=== PATIENT | female | born 1955 | race Caucasian/White ===

== ENCOUNTER 2020-09-16 10:06 | Emergency (ER) | payer MEDICARE, OTHER ==
[~2020-09-16] VITALS: Ht 170.2 cm; Wt 88.3 kg
[2020-09-16] MEDS ORDERED: IV NORMAL SALINE 1,000ML 1,000 ML IV ONE (10:45)
--- NOTE | 2020-09-16 10:54 | PHYS DOC ---
General Adult EDM: Chief Complaint: BLOODY STOOL HPI: HPI: 64-year-old female presents with blood in her stool. The patient has had bright red blood with her stool for the last 5 days. She only has blood with the stool. She was concerned now because she not only had blood mixed in the stool yesterday, but just drops of blood in the stool as well. It is painless. She has never had this before. She had a colonoscopy 3 years ago that is reported to be negative. She does not have difficulty with constipation. She has felt some bloating and some left lower quadrant pain. It is mild. Denies fever or chills. Review of Systems: Review of Systems: Constitutional: Denies fever or chills Eyes: Denies change in visual acuity HENT: Denies nasal congestion or sore throat Respiratory: Denies cough or shortness of breath Cardiovascular: Denies chest pain or edema GI: Left lower quadrant abdominal pain, blood in the stool. : Denies dysuria Musculoskeletal: Denies back pain or joint pain Integument: Denies rash Neurologic: Denies headache, focal weakness or sensory changes Endocrine: Denies polyuria or polydipsia Lymphatic: Denies swollen glands Psychiatric: Denies depression or anxiety Current Medications: Current Meds: Current Medications Medications (Trade) Dose Ordered Sig/Nena Start Time Stop Time Status Last Admin Dose Admin Sodium Chloride 1,000 ml @ 1,000 mls/hr 1X ONCE 09/16/20 10:45 09/16/20 11:44 UNV Physical Exam: PE: Constitutional: Well developed, well nourished, no acute distress, non-toxic appearance. [] HENT: Normocephalic, atraumatic, bilateral external ears normal, oropharynx moist, no oral exudates, nose normal. [] Eyes: PERRLA, EOMI, conjunctiva normal, no discharge. [] Neck: Normal range of motion, no tenderness, supple, no stridor. [] Cardiovascular: Heart rate regular rhythm, no murmur [] Lungs & Thorax: Bilateral breath sounds clear to auscultation [] Abdomen: Bowel sounds normal, soft, no tenderness, no masses, no pulsatile masses. [] Skin: Warm, dry, no erythema, no rash. [] Back: No tenderness, no CVA tenderness. [] Extremities: No tenderness, no cyanosis, no clubbing, ROM intact, no edema. [] Neurologic: Alert and oriented X 3, normal motor function, normal sensory function, no focal deficits noted. [] Psychologic: Affect normal, judgement normal, mood normal. [] EKG: EKG: [] Radiology/Procedures: Radiology/Procedures: [] Impressions: CT ABDOMEN+PELVIS W History: LLQ pain Comparison: None. Technique: After administration of intravenous contrast, helical CT of the abdomen and pelvis was performed from the lung bases through the ischial tuberosities. Coronal and sagittal reconstructions were obtained. 75 mL of Omnipaque 350 were used. One or more of the following dose reduction techniques were utilized: Automated exposure control (AEC), Adjustment of mA and/or kV according to patient size, Use of iterative reconstruction technique such as ASiR, CT scan done according to ALARA and image gently/image wisely Abdomen Findings: The visualized lung bases are clear. Hepatic steatosis. The gallbladder, pancreas, spleen, and bilateral adrenal glands are normal. Symmetric renal enhancement. Indeterminate left renal 1.4 cm lesion. There is no hydronephrosis. The visualized loops of small bowel are normal. Colonic diverticulosis. There is no evidence of bowel obstruction. Appendix is not seen There is no free fluid. There is no mesenteric or retroperitoneal adenopathy. The abdominal aorta is normal in caliber. Pelvis Findings: Urinary bladder is normal. No pelvic free fluid. There is no pelvic or inguinal adenopathy. There is no acute bony abnormality. IMPRESSION: 1. No acute findings. 2. Colonic diverticulosis. 3. Indeterminate left renal 1.4 cm lesion. This could be further characterized with nonemergent renal ultrasound. Electronically signed by: Renée Aranda MD (09/16/2020 12:32 PM) [id number] DICTATED AND SIGNED BY: RENÉE ARANDA MD DATE: 09/16/20 [id number] CC: ALCIRA CHAPPELL DO; PCP,NO ~MTH0 0 Heart Score: C/O Chest Pain: N/A Risk Factors: Risk Factors: DM, Current or recent (<one month) smoker, HTN, HLP, family history of CAD, obesity. Risk Scores: Score 0 - 3: 2.5% MACE over next 6 weeks - Discharge Home Score 4 - 6: 20.3% MACE over next 6 weeks - Admit for Clinical Observation Score 7 - 10: 72.7% MACE over next 6 weeks - Early Invasive Strategies Course & Med Decision Making: Course & Med Decision Making Pertinent Labs and Imaging studies reviewed. (See chart for details) The patient's labs are unremarkable. Her hemoglobin is normal. She has not had a stool in the emergency room. I believe this is likely a superficial internal hemorrhoid. If the patient has significant bleeding at home she'll return to the emergency room. The patient's urinalysis is suggestive of UTI. The patient is having some symptoms so I will treat her with Macrobid for 5 days. She is stable for discharge at this time. [] Dragon Disclaimer: Dragon Disclaimer: This electronic medical record was generated, in whole or in part, using a voice recognition dictation system. Departure Departure: Impression: Primary Impression: Blood in stool, aarti Additional Impression: UTI (urinary tract infection) Qualified Codes: N30.01 - Acute cystitis with hematuria Disposition: HOME / SELF CARE / HOMELESS Condition: STABLE Referrals: PCP,GREGORIA (PCP) Patient Instructions: Bloody Stools, Asgn-of-Oagd Scripts Nitrofurantoin Monohyd/M-Cryst (MACROBID 100 MG CAPSULE) 100 Mg Capsule 1 CAP PO BID for UTI for 5 Days, #10 CAP 0 Refills Prov: ALCIRA CHAPPELL DO 09/16/20 ALCIRA CHAPPELL DO September 16, 2020 10:54
[2020-09-16] MEDS ORDERED: PANTOPRAZOLE IV 40 MG VIAL. IVP ONE (11:00)
[2020-09-16 11:38] LABS: BASO % 1 % (0-3); EOS # 0.2 x10^3/uL (0.0-0.7); EOS % 2 % (0-3); HEMATOCRIT 42.7 % (36.0-47.0); HEMOGLOBIN 14.4 g/dL (12.0-15.5); LYMPH # 2.4 x10^3/uL (1.0-4.8); LYMPH % 32 % (24-48); MEAN CORPUSCULAR HEMOGLOBIN 33 pg (25-35); MEAN CORPUSCULAR HGB CONC 34 g/dL (31-37); MEAN CORPUSCULAR VOLUME 99 fL (79-100); MONO # 0.5 x10^3/uL (0.0-1.1); MONO % 7 % (0-9); NEUT # 4.3 x10^3uL (1.8-7.7); NEUT % 58 % (31-73); PLATELET COUNT 252 x10^3/uL (140-400); RED BLOOD COUNT 4.33 x10^6/uL (3.50-5.40); WHITE BLOOD COUNT 7.4 x10^3/uL (4.0-11.0)
[2020-09-16 11:45] VITALS: BP 163/86
[2020-09-16 11:49] LABS: CALCIUM 9.3 mg/dL (8.5-10.1); CREATININE 0.7 mg/dL (0.6-1.0); GFR 83.7; POTASSIUM 4.2 mmol/L (3.5-5.1)
[2020-09-16 11:57] LABS: ALBUMIN 3.5 g/dL (3.4-5.0); TOTAL BILIRUBIN 0.4 mg/dL (0.2-1.0); TOTAL PROTEIN 7.1 g/dL (6.4-8.2)
[2020-09-16] MEDS ORDERED: IOHEXOL 300 MG/ML 75 ML VIAL. IV ONE (12:00)
[2020-09-16] MEDS ORDERED: CONTRAST GIVEN. MC PRN (12:15)
[2020-09-16 12:19] LABS: BILIRUBIN,URINE NEG (NEG); CLARITY,URINE CLOUDY; COLOR,URINE YELLOW; GLUCOSE,URINE NEG (NEG); NITRITE,URINE NEG (NEG); RBC,URINE 0 /HPF (0-2); UROBILINOGEN,URINE 0.2 mg/dL (0.2 mg/dL)
[2020-09-16 12:20] LABS: BACTERIA,URINE MOD /HPF (0-FEW); SQUAMOUS EPITHELIAL CELL,UR MOD /LPF
--- NOTE | 2020-09-16 12:35 | RAD ---
CT ABDOMEN+PELVIS W History: LLQ pain Comparison: None. Technique: After administration of intravenous contrast, helical CT of the abdomen and pelvis was per formed from the lung bases through the ischial tuberosities. Coronal and sagittal reconstructions wer e obtained. 75 mL of Omnipaque 350 were used. One or more of the following dose reduction techniques were utilized: Automated exposure control (AEC), Adjustment of mA and/or kV according to patient size , Use of iterative reconstruction technique such as ASiR, CT scan done according to ALARA and image g ently/image wisely Abdomen Findings: The visualized lung bases are clear. Hepatic steatosis. The gallbladder, pancreas, spleen, and bilateral adrenal glands are normal. Symmetric renal enhancement. Indeterminate left renal 1.4 cm lesion. There is no hydronephrosis. The visualized loops of small bowel are normal. Colonic diverticulosis. There is no evidence of bowel obstruction. Appendix is not seen There is no free fluid. There is no mesenteric or retroperitoneal adenopathy. The abdominal aorta is normal in caliber. Pelvis Findings: Urinary bladder is normal. No pelvic free fluid. There is no pelvic or inguinal adenopathy. There is no acute bony abnormality. IMPRESSION: 1. No acute findings. 2. Colonic diverticulosis. 3. Indeterminate left renal 1.4 cm lesion. This could be further characterized with nonemergent renal ultrasound. Electronically signed by: Rodney Bradley MD (09/16/2020 12:32 PM) [id number]
[2020-09-16] MEDS ORDERED: NITR100C62 PO (13:26)
== END 2020-09-16 13:34 | disposition home or self-care (01) ==
LOC: ER 10:06
DX: K92.1 Melena (principal); N39.0 Urinary tract infection, site not specified
CPT/HCPCS: 36415; 74177; 80053; 81001; 85025; 87086; 96361; 96374; 99285; C9113; J7030

== ENCOUNTER → 2021-01-03 | Outpatient (CLI) | payer MEDICARE, OTHER ==
[~2021-01-03] MED LIST: NITR100C62 PO
--- NOTE | 2021-01-03 11:34 | RAD ---
EXAM: Right lower extremity venous Doppler. HISTORY: Right lower extremity pain/swelling. COMPARISON: None. FINDINGS: Grayscale and Doppler analysis of the right lower extremity deep venous system was performe d with graded compression and augmentation. The common femoral, greater saphenous, superficial femora l, popliteal and calf veins were assessed. There is no evidence of deep venous thrombosis. IMPRESSION: 1. No evidence of deep venous thrombosis. Electronically signed by: Parveen Melgoza MD (01/03/2021 11:32 AM) [facility]
== END ==
LOC: US 10:44
PROVIDERS: ATTEND Family Medicine
DX: M79.604 Pain in right leg (principal)
CPT/HCPCS: 93971

== ENCOUNTER → 2021-01-25 | Outpatient (CLI) | payer MEDICARE, OTHER ==
--- NOTE | 2021-01-25 09:25 | RAD ---
EXAM: Abdomen aortic sonogram. HISTORY: Aneurysm screening. Tobacco use. TECHNIQUE: Sonographic imaging of the abdominal aorta was performed. COMPARISON: None. FINDINGS: The proximal abdominal aorta measures 2.5 cm in caliber. The mid abdominal aorta measures 2 .6 cm in caliber. The distal abdominal aorta measures 2.5 cm in caliber. The common iliac arteries me asure 0.9 cm and 0.8 cm. There is atherosclerotic plaque involving the aorta and iliac bifurcation. IMPRESSION: No sonographic evidence of abdominal aortic aneurysm. Electronically signed by: Katherine Arellano MD (01/25/2021 9:22 AM) [id number]
--- NOTE | 2021-01-25 09:57 | RAD ---
CT LOW DOSE LUNG SCREEN History: History of smoking. Screening. Technique: Noncontrast CT of the chest was performed. Coronal and sagittal reconstructions were perfo rmed. Exposure: One or more of the following individualized dose reduction techniques were utilized for thi s examination: 1. Automated exposure control 2. Adjustment of the mA and/or kV according to patient size 3. Use of iterative reconstruction technique. Comparison: CT abdomen and pelvis September 16, 2020. Findings: Chest: No pathologic lymphadenopathy. Mild atheromatous plaque within the aorta. No consolidation or pleural effusion. Mild right middle lobe and lingular linear atelectasis. Mild pulmonary emphysema. Tiny 2 mm right upper lobe pulmonary nodule pleural-based (series 5 image 93). 2 mm right lower lobe pulmonary nodule (image 205). Upper abdomen: Probable hepatic steatosis. Unchanged left posterior renal lesion measures 1.6 cm. Bones: No pathologic osseous lesions. Impression: 1. Small pulmonary nodules. Lung RADS 2. Recommend continued annual low-dose screening CT chest with out contrast. 2. Unchanged left renal lesion. Recommend renal ultrasound as previously stated. Electronically signed by: Eliazar Herring DO (01/25/2021 9:54 AM) [facility]
--- NOTE | 2021-01-25 10:36 | RAD ---
EXAM: DUAL ENERGY X-RAY ABSORPTIOMETRY (DEXA). HISTORY: Postmenopausal screening. FINDINGS: The lowest measured T-score is right hip in the -3.0, based on a bone mineral density of 0. 591 g/cm^2. Refer to the worksheets for full detail. No comparison examinations are available. IMPRESSION: 1. Osteoporosis. Bone mineral density yields a T-score of -2.5 or less. Fracture risk is high. 2. FRAX report: Not calculated. METHODOLOGY: Dual energy x-ray absorptiometry was performed to measure bone mineral density. The foll owing analysis is based on the 2019 Official Positions of the International Society for Clinical Dens itometry: Measurements of the hips and the average of L1-L4 are preferred. When the spine and/or hip cannot be feasibly measured or interpreted, or in the setting of hyperparathyroidism, distal radial bone minera l density may be measured. The lumbar spine T-score is based on the average bone mineral density of L1-L4. In the setting of art ifact or anatomic abnormality, some lumbar levels may be excluded, and the remaining levels used for calculation. A single lumbar level is not used for diagnosis, and if only a single level is available for assessment, another anatomic site will be used to assign a diagnosis. The hip T-score is based on the bone mineral density measurement of the femoral neck or total proxima l femur of either side, whichever is lowest. Bilateral mean values are not used for diagnosis. The forearm T-score is derived from 33% of the distal radius of the nondominant forearm. Electronically signed by: Katherine Arellano MD (01/25/2021 10:34 AM) [id number]
--- NOTE | 2021-01-25 10:47 | RAD ---
EXAM: Right lower extremity venous reflux sonogram. HISTORY: Varicose veins. TECHNIQUE: Sonographic imaging of the right lower extremity veins was performed. COMPARISON: 01/03/2021. FINDINGS: There are findings consistent with right greater saphenous vein ablation. There is a large varicose vein with significant reflux within the proximal thigh measuring 4.2 in caliber with reflux of 1.9 seconds. There is also an incompetent right calf operations systems specialist vein measuring 4.4 mm in caliber 1 4 cm up with reflux of 2.5 seconds. The right lesser saphenous vein measures 4.1 mm at the junction a nd 3.0 mm proximally, without evidence of reflux. IMPRESSION: 1. Venous reflux involving a prominent varicose vein within the proximal thigh. 2. Venous reflux involving an incompetent right calf operations systems specialist vein. 3. Right greater saphenous vein ablation. Electronically signed by: Katherine Arellaon MD (01/25/2021 10:44 AM) [id number]
== END ==
LOC: US 07:46
PROVIDERS: ATTEND Family Medicine
DX: M81.8 Other osteoporosis without current pathological fracture (principal); R91.8 Other nonspecific abnormal finding of lung field; N28.89 Other specified disorders of kidney and ureter; J43.9 Emphysema, unspecified; J98.11 Atelectasis; I70.0 Atherosclerosis of aorta; I87.2 Venous insufficiency (chronic) (peripheral); N95.1 Menopausal and female climacteric states; Z87.891 Personal history of nicotine dependence
CPT/HCPCS: 71271; 76770; 77080; 93971

== ENCOUNTER → 2021-02-09 | Outpatient (CLI) | payer MEDICARE, OTHER ==
--- NOTE | 2021-02-09 16:23 | RAD ---
US RENAL BILAT History: Reason: CYST OF KIDNEY / Spl. Instructions: / History: Comparison: CT January 25, 2021 Procedure: Transabdominal ultrasound images are obtained of the kidneys and bladder. Findings: Right kidney: measures 10.9 x 4.8 x 4.7 cm. Normal cortical echotexture. Corticomedullary differenti ation is preserved. No hydronephrosis. Left kidney: measures 10.1 x 4.7 x 5.2 cm. Hypoechoic lesion within the left kidney measures 1.5 x 1 .5 x 1.[address] finding. No hydronephrosis. Urinary bladder: No urinary bladder wall thickening. The IVC is normal caliber. The visualized abdominal aorta is normal caliber. Increased hepatic echotexture, may indicate steatosis. IMPRESSION: 1. Hypoechoic left renal lesion, may represent complicated cyst. Recommend 6-12 month ultrasound fol low-up. Alternatively, renal protocol CT or MRI can definitively evaluate. Electronically signed by: Eliazar Herring DO (02/09/2021 4:21 PM) [id number]
== END ==
LOC: US 15:04
PROVIDERS: ATTEND Family Medicine
DX: K76.0 Fatty (change of) liver, not elsewhere classified (principal); N28.1 Cyst of kidney, acquired
CPT/HCPCS: 76770

== ENCOUNTER → 2021-02-13 | Outpatient (CLI) | payer MEDICARE, OTHER ==
--- NOTE | 2021-02-13 11:00 | RAD ---
CT ABDOMEN+PELVIS WO History: Cyst of kidney. Comparison: CT abdomen and pelvis 09/16/2020, ultrasound 02/09/2021, CT chest 01/25/2021. Technique: Noncontrast CT of the abdomen and pelvis. Findings: Minimal lingular and right middle lobe atelectasis. Visualized heart is unremarkable. Diffuse hypodensity liver compatible steatosis. Unremarkable gallbladder, pancreas, spleen, and adren al glands. At the posterior cortex of the left kidney there is an approximately 1.2 x 1.5 cm cystic lesion which measures approximately 18 Hounsfield units on noncontrast exam. No hydronephrosis or nephrolithiasis . The stomach and small bowel are unremarkable. There is mild descending and sigmoid diverticulosis. Th e bladder, uterus and adnexa are unremarkable. No abdominal pelvic adenopathy. Aortoiliac atheroscler otic calcification without aneurysm. Soft tissues are unremarkable. There are degenerative changes of the lumbar spine with advanced facet arthrosis at L5-S1. Impression: 1. Redemonstrated approximately 1.5 cm cystic lesion of the posterior cortex left kidney which measu res approximately 18 Hounsfield units on noncontrast exam. This is favored to represent a proteinaceo us or hemorrhagic containing cyst. Recommend repeat ultrasound in one year to ensure stability. 2. Colonic diverticulosis. 3. Hepatic steatosis. ------ Exposure: One or more of the following individualized dose reduction techniques were utilized for thi s examination: 1. Automated exposure control 2. Adjustment of the mA and/or kV according to patient size 3. Use of iterative reconstruction technique. Electronically signed by: Mitul Talley MD (02/13/2021 10:57 AM) [facility]
== END ==
LOC: CT 07:48
PROVIDERS: ATTEND Family Medicine
DX: N28.89 Other specified disorders of kidney and ureter (principal); K57.30 Diverticulosis of large intestine without perforation or abscess without bleeding; K76.0 Fatty (change of) liver, not elsewhere classified; J98.11 Atelectasis; I70.0 Atherosclerosis of aorta; M47.817 Spondylosis without myelopathy or radiculopathy, lumbosacral region; M12.88 Other specific arthropathies, not elsewhere classified, other specified site
CPT/HCPCS: 74176